=== PATIENT | female | born 1965 | race Two or more races ===

== ENCOUNTER → 2019-10-15 | Outpatient (CLI) | payer MEDICAID ==
[~2019-10-15] MED LIST: AMLO5TAB88 PO; ASPI-1497 PO; ATOR-2 MT; CLOP75TA4 PO; COR12 MT; LOSA100T32 PO; METF-414 MT
== END | disposition home or self-care (01) ==
LOC: LAB 08:44
PROVIDERS: ATTEND Specialist
DX: Z20.828 Contact with and (suspected) exposure to other viral communicable diseases (principal); R05 Cough
CPT/HCPCS: C9803; U0003

== ENCOUNTER → 2019-10-17 | Day surgery (SDC) | payer MEDICAID ==
[~2019-10-17] MED LIST changes: +FENTANYL CITRATE/PF 50MCG/ML 2ML VIAL ONE; +IODIXANOL 320MG/ML 100 ML BOTTLE IV ONE; +LIDOCAINE HCL 1% 20ML VIAL (Pyxis) INJ ONE; +MIDAZOLAM HCL 2 MG/2 ML VIAL ONE
== END | disposition home or self-care (01) ==
LOC: CCL 08:53
PROVIDERS: ATTEND Specialist
DX: R07.9 Chest pain, unspecified (principal); I25.10 Atherosclerotic heart disease of native coronary artery without angina pectoris; I10 Essential (primary) hypertension; E11.9 Type 2 diabetes mellitus without complications; E78.5 Hyperlipidemia, unspecified; Z79.899 Other long term (current) drug therapy; Z98.890 Other specified postprocedural states; Z79.82 Long term (current) use of aspirin; Z79.84 Long term (current) use of oral hypoglycemic drugs; Z82.49 Family history of ischemic heart disease and other diseases of the circulatory system; Z95.5 Presence of coronary angioplasty implant and graft
CPT/HCPCS: 93458; C1769; C1887; C1893; J1644; J2250; J3010; J3490; Q9967; 99152; G0500